=== PATIENT | female | born 1955 | race Caucasian/White ===

== ENCOUNTER 2017-02-14 14:31 | Emergency (ER) | payer MEDICAID ==
[2017-02-14] MEDS ORDERED: Oxycodone/Acetaminophen 5/325 mg Tab PO STA (14:58)
--- NOTE | 2017-02-14 15:01 | ED PDOC ---
Arrival/HPI - General Time Seen by Provider: 02/14/17 14:42 Historian: Patient, Family (Daughter, who translated for patient) - History of Present Illness Narrative History of Present Illness (Text): 02/14/17 14:55 A 62 year old female presents to the emergency department for evaluation after mechanical fall prior to arrival. History obtained through daughter who translated for patient. Daughter reports while walking patient tripped on uneven sidewalk falling forward and rolling to her left side. Patient complains of left knee pain, left hip pain and back pain. Patient denies any loss of consciousness, head trauma, headache, dizziness, neck pain, nausea, vomiting, abdominal pain, chest pain, shortness of breath or any other complaints. Time/Duration: Prior to Arrival Symptom Course: Unchanged Quality: Other Context: Tripped Past Medical History - Provider Review Nursing Documentation Reviewed: Yes - Cardiac Hx Cardiac Disorders: Yes Hx Hypertension: Yes Other/Comment: CARDIAC CATH, NO STENTING PER PT - Pulmonary Hx Respiratory Disorders: No - Neurological Hx Neurological Disorder: No - HEENT Hx HEENT Disorder: No - Renal Hx Renal Disorder: No - Endocrine/Metabolic Hx Endocrine Disorders: Yes Hx Diabetes Mellitus Type 2: Yes Hx Hyperthyroidism: Yes Other/Comment: THYROID NODULE - Hematological/Oncological Hx Blood Disorders: No - Integumentary Hx Dermatological Disorder: No - Musculoskeletal/Rheumatological Hx Musculoskeletal Disorders: No - Gastrointestinal Hx Gastrointestinal Disorders: Yes Hx Gastritis: Yes - Genitourinary/Gynecological Hx Genitourinary Disorders: No - Psychiatric Hx Psychophysiologic Disorder: No Hx Substance Use: No - Surgical History Hx Cardiac Catheterization: Yes - Anesthesia Hx Anesthesia: Yes Hx Anesthesia Reactions: No Hx Malignant Hyperthermia: No Family/Social History - Physician Review Nursing Documentation Reviewed: Yes Family/Social History: No Known Family HX Smoking Status: Never Smoked Hx Alcohol Use: No Hx Substance Use: No Allergies/Home Meds Allergies/Adverse Reactions: Allergies No Known Allergies Allergy (Unverified 03/18/14 09:38) Home Medications: Home Meds Medication Instructions Recorded Confirmed Bisoprolol Fumarate/Hctz 2.5 - 6.25 mg PO DAILY 03/22/14 02/14/17 [Bisoprolol/Hctz 2.5 mg-6.25 mg] Meloxicam [Mobic] 15 mg PO DAILY 03/22/14 02/14/17 Gabapentin [Neurontin] 300 mg PO DAILY 07/08/15 02/14/17 Omeprazole [Prilosec] 20 mg PO DAILY 07/08/15 02/14/17 Pravastatin Sodium [Pravachol] 40 mg PO DAILY 07/08/15 02/14/17 methIMAzole [Tapazole] 5 mg PO DAILY 07/08/15 02/14/17 Alendronate [Fosamax] 1 tab PO QWK 02/15/16 02/14/17 Ergocalciferol (Vitamin D2) 1 tab PO DAILY 02/15/16 02/14/17 [Vitamin D2] Furosemide [Lasix] 1 tab PO DAILY 02/15/16 02/14/17 Hydrocortisone 2.5% (Rectal) 1 apful TOP DAILY 02/15/16 02/14/17 [Anusol-HC] Multivitamin [Multivitamins] 1 tab PO DAILY 02/15/16 02/14/17 Nitroglycerin [Nitrostat] 1 tab PO PRN PRN 02/15/16 02/14/17 Potassium Chloride [Klor-Con 1 tab PO DAILY 02/15/16 02/14/17 Sprinkle] SITagliptin [Januvia] 1 tab PO DAILY 02/15/16 02/14/17 Sucralfate [Carafate Tab] 1 tab PO DAILY 02/15/16 02/14/17 Review of Systems - Physician Review All systems were reviewed & negative as marked: Yes - Review of Systems Constitutional: absent: Fatigue Eyes: absent: Vision Changes, Photophobia ENT: absent: Hearing Changes Respiratory: absent: SOB, Cough, Sputum, Wheezing Cardiovascular: absent: Chest Pain, Palpitations Gastrointestinal: absent: Abdominal Pain, Diarrhea, Nausea, Vomiting Musculoskeletal: Back Pain, Other (Left knee pain, Left hip pain). absent: Neck Pain Neurological: absent: Headache, Dizziness, Focal Weakness, Gait Changes Physical Exam Vital Signs Reviewed: Yes Vital Signs Temp Pulse Resp BP Pulse Ox 02/14/17 16:46 68 17 120/75 98 02/14/17 14:45 98 F 65 18 118/60 97 Temperature: Afebrile Blood Pressure: Normal Pulse: Regular Respiratory Rate: Normal Appearance: Positive for: Well-Appearing, Non-Toxic, Comfortable Pain Distress: None Mental Status: Positive for: Alert and Oriented X 3 - Systems Exam Head: Present: Atraumatic, Normocephalic Pupils: Present: PERRL Extroacular Muscles: Present: EOMI Conjunctiva: Present: Normal Mouth: Present: Moist Mucous Membranes Neck: Present: Normal Range of Motion. No: MIDLINE TENDERNESS, Paraspinal Tenderness Respiratory/Chest: Present: Clear to Auscultation, Good Air Exchange. No: Respiratory Distress, Accessory Muscle Use Cardiovascular: Present: Regular Rate and Rhythm, Normal S1, S2. No: Murmurs Abdomen: Present: Normal Bowel Sounds. No: Tenderness, Distention, Peritoneal Signs Back: Present: Midline Tenderness (lumbar tenderness). No: Paraspinal Tenderness, Pain with Leg Raise Upper Extremity: Present: Normal Inspection. No: Cyanosis, Edema Lower Extremity: Present: NORMAL PULSES, Normal ROM, Tenderness (Scant bony left hip tenderness, abrasion to L knee), Neurovascularly Intact. No: Edema, CALF TENDERNESS, Erythema, Deformity, Other (no joint laxity) Neurological: Present: GCS=15, CN II-XII Intact, Speech Normal Skin: Present: Warm, Dry, Normal Color, Abrasion (to left knee). No: Rashes Psychiatric: Present: Alert, Oriented x 3, Normal Insight, Normal Concentration Medical Decision Making ED Course and Treatment: 02/14/17 14:55 Impression: A 62 year old female with back, left hip and left knee pain after mechanical fall prior to arrival. Plan: -- LS spine xray -- Bilateral hip w/pelvis xray -- Left knee xray -- Percocet -- tetanus -- Reassess and disposition Progress Notes: Report Date : 02/14/2017 16:39:32 PROCEDURE: Radiographs of the Lumbar Spine. Dictator : Alexander Chambers MD IMPRESSION: [id number] multilevel lumbar spondylosis without fracture or spondylolisthesis identified. Diffuse osteopenia suggests osteoporosis. Follow -up MRI or CT cava performed for further characterization. Report Date : 02/14/2017 16:53:40 PROCEDURE: Left Knee Radiographs. Dictator : Carlos Salazar MD IMPRESSION: Mild medial osteoarthritis. Otherwise unremarkable. Report Date : 02/14/2017 16:54:56 PROCEDURE: Radiographs of the pelvis and bilateral hips Dictator : Carlos Salazar MD IMPRESSION: Unremarkable radiographs of the hips and pelvis. 02/14/17 17:01 Xrays are negative. Patient is ambulating around the ED without issue. Instructed to follow-up with PMD - RAD Interpretation Radiology Orders: 02/14/17 14:57 HIP MIN 2V W/ PELVIS BC [RAD] Stat KNEE WITH PATELLA LEFT 3 VIEW [RAD] Stat LS SPINE WITH OBL > 18 YRS OLD [RAD] Stat - Medication Orders Current Medication Orders: Discontinued Medications Oxycodone/Acetaminophen (Percocet 5/325 Mg Tab) 1 tab PO STAT STA Stop: 02/14/17 14:59 Last Admin: 02/14/17 15:41 Dose: 1 tab MAR Pain Assessment Document 02/14/17 15:41 SF (Rec: 02/14/17 15:42 SF [email or web address] Pain Reassessment Is this a pain reassessment? Yes Sleep Is patient sleeping during reassessment? No Presence of Pain Presence of Pain Yes Tetanus/Reduced Diphtheria/Acell Pertussis (Boostrix Vaccine Inj) 0.5 ml IM .ONCE ONE Stop: 02/14/17 17:02 Last Admin: 02/14/17 17:12 Dose: 0.5 ml MAR Immunization Data Document 02/14/17 17:12 SF (Rec: 02/14/17 17:13 SF [email or web address] Immunization Data Vaccine Lot Number [id number] Site Given Left Deltoid - Scribe Statement The provider has reviewed the documentation as recorded by the Scribbipin Jorgensen Provider Scribe Attestation: All medical record entries made by the Scribe were at my direction and personally dictated by me. I have reviewed the chart and agree that the record accurately reflects my personal performance of the history, physical exam, medical decision making, and the department course for this patient. I have also personally directed, reviewed, and agree with the discharge instructions and disposition. Disposition/Present on Arrival - Present on Arrival Any Indicators Present on Arrival: No History of DVT/PE: No History of Uncontrolled Diabetes: No Urinary Catheter: No History Surgical Site Infection Following: None - Disposition Have Diagnosis and Disposition been Completed?: Yes Diagnosis: Fall Disposition: HOME/ ROUTINE Disposition Time: 17:14 Patient Plan: Discharge Patient Problems: Current Active Problems Problem Status Onset Fall Acute Condition: GOOD Discharge Instructions (ExitCare): Fall Prevention for Older Adults (ED) Additional Instructions: Return to ED if condition worsens. Follow-up with PMD within 2 days. Motrin for pain. Referrals: PCP,NO [Primary Care Provider] - Follow up with primary Forms: [employer] ([place]anaian)
[2017-02-14 15:08] VITALS: TEMP 98; BMI 32.3
--- NOTE | 2017-02-14 16:41 | RAD ---
PROCEDURE: Radiographs of the Lumbar Spine. HISTORY: back pain after fall COMPARISON: No prior. FINDINGS: BONES: Normal alignment. No listhesis. No fracture. Diffuse osteopenia suggests osteoporosis. Multilevel spondylosis appears [id number] in severity. DISC SPACES: Unremarkable. OTHER FINDINGS: None. IMPRESSION: [id number] multilevel lumbar spondylosis without fracture or spondylolisthesis identified. Diffuse osteopenia suggests osteoporosis. Follow-up MRI or CT cava performed for further characterization.
--- NOTE | 2017-02-14 16:54 | RAD ---
PROCEDURE: Left Knee Radiographs. HISTORY: Pain. COMPARISON: None. FINDINGS: BONES: No acute fracture. No lytic or blastic osseous lesion. JOINTS: Mild medial osteoarthritis with joint space narrowing and marginal osteophyte formation. Lateral and patellofemoral compartments appear preserved. JOINT EFFUSION: None. OTHER FINDINGS: None. IMPRESSION: Mild medial osteoarthritis. Otherwise unremarkable.
--- NOTE | 2017-02-14 16:56 | RAD ---
PROCEDURE: Radiographs of the pelvis and bilateral hips HISTORY: L hip pain after fall COMPARISON: None. FINDINGS: BONES: Pelvis: Unremarkable. Right hip:Unremarkable. Left hip:Unremarkable. JOINTS: Right hip: Unremarkable. Left hip: Unremarkable. Sacroiliac Joints: Unremarkable. Pubic symphysis: Unremarkable. SOFT TISSUES: Normal. OTHER FINDINGS: None. IMPRESSION: Unremarkable radiographs of the hips and pelvis.
[2017-02-14] MEDS ORDERED: TDAP Vaccine 0.5 mL Syr IM ONE (17:01)
[2017-02-14 17:19] VITALS: BP 121/80; PULSE 70; RESP 18; O2SAT 99
== END 2017-02-14 17:19 | disposition home or self-care (01) ==
LOC: ED 14:31
DX: Z04.3 Encounter for examination and observation following other accident (principal); W01.0XXA Fall on same level from slipping, tripping and stumbling without subsequent striking against object, initial encounter; Y93.01 Activity, walking, marching and hiking; Y92.480 Sidewalk as the place of occurrence of the external cause

== ENCOUNTER 2017-09-11 20:02 | Emergency (ER) | payer MEDICAID ==
[2017-09-11 20:03] VITALS: BMI 32.3
[2017-09-11] MEDS ORDERED: Morphine 4 mg/ml ISec IVP PRN (20:32)
[2017-09-11] MEDS ORDERED: Sodium Chloride 0.9% 1,000 ML IV SCH (20:45)
[2017-09-11 20:50] VITALS: RESP 18; TEMP 98.2
[2017-09-11 21:52] LABS: BASO # 0.01 K/mm3 (0.0-2.0); BASO % 0.2 % (0.0-3.0); EOS # 0.1 (0.0-0.7); EOS % 1.7 % (1.5-5.0); GRAN # 3.83 (1.4-6.5); GRAN % 60.5 % (50.0-68.0); HEMOGLOBIN 14.3 g/dL (12.0-16.0); LYMPH % 31.3 % (22.0-35.0); MEAN CELL VOLUME 85.4 fl (80.0-105.0); MEAN CORPUSCULAR HEMOGLOBIN 28.9 pg (25.0-35.0); MEAN CORPUSCULAR HGB CONC 33.9 g/dl (31.0-37.0); MEAN PLATELET VOLUME 11.6 fl (7.0-11.0); MONO # 0.4 (0.1-0.6); MONO % 6.3 % (1.0-6.0); RBC 4.94 10^6/uL (3.5-6.1); RED CELL DISTRIBUTION WIDTH 13.5 % (11.5-14.5); WHITE BLOOD COUNT 6.3 10^3/ul (4.5-11.0)
[2017-09-11 21:53] LABS: ALB/GLOB RATIO 1.4 (1.1-1.8); ALBUMIN 4.6 g/dL (3.0-4.8); ALT/SGPT 33 U/L (7-56); AST/SGOT 27 U/L (14-36); BLOOD UREA NITROGEN 17 mg/dL (7-21); GFR AFRICAN-AMERICAN > 60; GFR NON-AFRICAN AMERICAN > 60
[2017-09-11 21:57] LABS: INR 1.02 (0.93-1.08); PARTIAL THROMBOPLASTIN TIME 24.7 Seconds (25.1-36.5); PROTHROMBIN TIME 11.6 SECONDS (9.4-12.5)
[2017-09-11 22:04] LABS: TROPONIN I 0.02 ng/mL
--- NOTE | 2017-09-11 22:13 | ED PDOC ---
Arrival/HPI - General Chief Complaint: Trauma Time Seen by Provider: 09/11/17 20:19 Historian: Patient, Family - History of Present Illness Narrative History of Present Illness (Text): 09/11/17 20:30 Azul Echeverria is a 62 year old female, whose past medical history includes hypertension, CAD, and diabetes, who presents to the Emergency department status post possible syncopal episode tonight. Patient states she is unsure if she lost consciousness earlier tonight but notes she fell and injured her right side. [id number] now complaining of right hip pain and right ankle pain. Patient denies any fever, chills, chest pain, shortness of breath, nausea, vomiting, diarrhea, urinary symptoms, neck pain, headache, or any other complaints. Symptom Onset: Gradual Symptom Course: Unchanged Activities at Onset: Light Context: Home Past Medical History - Provider Review Nursing Documentation Reviewed: Yes - Infectious Disease Hx of Infectious Diseases: None - Cardiac Hx Cardiac Disorders: Yes Hx Hypertension: Yes Other/Comment: CARDIAC CATH, NO STENTING PER PT - Pulmonary Hx Respiratory Disorders: No - Neurological Hx Neurological Disorder: No - HEENT Hx HEENT Disorder: No - Renal Hx Renal Disorder: No - Endocrine/Metabolic Hx Endocrine Disorders: Yes Hx Diabetes Mellitus Type 2: Yes Hx Hyperthyroidism: Yes Other/Comment: THYROID NODULE - Hematological/Oncological Hx Blood Disorders: No - Integumentary Hx Dermatological Disorder: No - Musculoskeletal/Rheumatological Hx Musculoskeletal Disorders: No - Gastrointestinal Hx Gastrointestinal Disorders: Yes Hx Gastritis: Yes - Genitourinary/Gynecological Hx Genitourinary Disorders: No - Psychiatric Hx Psychophysiologic Disorder: No Hx Substance Use: No - Surgical History Hx Cardiac Catheterization: Yes - Anesthesia Hx Anesthesia: Yes Hx Anesthesia Reactions: No Hx Malignant Hyperthermia: No Family/Social History - Physician Review Nursing Documentation Reviewed: Yes Family/Social History: Unknown Family HX Smoking Status: Never Smoked Hx Alcohol Use: No Hx Substance Use: No Allergies/Home Meds Allergies/Adverse Reactions: Allergies No Known Allergies Allergy (Unverified 03/18/14 09:38) Home Medications: Home Meds Medication Instructions Recorded Confirmed Bisoprolol Fumarate/Hctz 2.5 - 6.25 mg PO DAILY 03/22/1402/14/17 [Bisoprolol/Hctz 2.5 mg-6.25 mg] Meloxicam [Mobic] 15 mg PO DAILY 03/22/14 02/14/17 Gabapentin [Neurontin] 300 mg PO DAILY 07/08/15 02/14/17 Omeprazole [Prilosec] 20 mg PO DAILY 07/08/15 02/14/17 Pravastatin Sodium [Pravachol] 40 mg PO DAILY 07/08/15 02/14/17 methIMAzole [Tapazole] 5 mg PO DAILY 07/08/15 02/14/17 Alendronate [Fosamax] 1 tab PO QWK 02/15/16 02/14/17 Ergocalciferol (Vitamin D2) 1 tab PO DAILY 02/15/16 02/14/17 [Vitamin D2] Furosemide [Lasix] 1 tab PO DAILY 02/15/16 02/14/17 Hydrocortisone 2.5% (Rectal) 1 apful TOP DAILY 02/15/16 02/14/17 [Anusol-HC] Multivitamin [Multivitamins] 1 tab PO DAILY 02/15/16 02/14/17 Nitroglycerin [Nitrostat] 1 tab PO PRN PRN 02/15/16 02/14/17 Potassium Chloride [Klor-Con 1 tab PO DAILY 02/15/16 02/14/17 Sprinkle] SITagliptin [Januvia] 1 tab PO DAILY 02/15/16 02/14/17 Sucralfate [Carafate Tab] 1 tab PO DAILY 02/15/16 02/14/17 Review of Systems - Physician Review All systems were reviewed & negative as marked: Yes - Review of Systems Constitutional: Normal. absent: Fevers Eyes: Normal ENT: Normal Respiratory: Normal. absent: SOB, Cough Cardiovascular: Syncope Gastrointestinal: Normal Genitourinary Female: Normal Musculoskeletal: Arthralgias (+right ankle pain, +right hip pain) Skin: Normal Neurological: Dizziness. absent: Headache Endocrine: Normal Hemo/Lymphatic: Normal Psychiatric: Normal Physical Exam Vital Signs Reviewed: Yes Vital Signs Temp Pulse Resp BP Pulse Ox 09/12/17 00:30 98.2 F 75 18 144/89 100 09/11/17 22:53 74 18 146/63 95 09/11/17 20:49 98.2 F 78 18 163/90 H 98 Temperature: Afebrile Blood Pressure: Hypertensive Pulse: Regular Respiratory Rate: Normal Appearance: Positive for: Well-Appearing, Non-Toxic, Comfortable Pain Distress: None Mental Status: Positive for: Alert and Oriented X 3 - Systems Exam Head: Present: Atraumatic, Normocephalic Pupils: Present: PERRL Extroacular Muscles: Present: EOMI Conjunctiva: Present: Normal Mouth: Present: Moist Mucous Membranes Neck: Present: Normal Range of Motion Respiratory/Chest: Present: Clear to Auscultation, Good Air Exchange. No: Respiratory Distress, Accessory Muscle Use Cardiovascular: Present: Regular Rate and Rhythm, Normal S1, S2. No: Murmurs Abdomen: No: Tenderness, Distention, Peritoneal Signs Back: Present: Normal Inspection Upper Extremity: Present: Normal Inspection. No: Cyanosis, Edema Lower Extremity: Present: NORMAL PULSES, Tenderness (Tenderness over right ankle ), Neurovascularly Intact, Capillary Refill < 2 s. No: Edema, Swelling, Erythema, Deformity, Temperature Abnormalties Neurological: Present: GCS=15, CN II-XII Intact, Speech Normal, Motor Func Grossly Intact, Normal Sensory Function, Normal Cerebellar Funct Skin: Present: Warm, Dry, Normal Color. No: Rashes Psychiatric: Present: Alert, Oriented x 3, Normal Insight, Normal Concentration Medical Decision Making ED Course and Treatment: 09/11/17 20:30 Impression: 62 year old female presents s/p possible syncopal episode with right ankle pain and right hip pain. Differential Diagnosis included but are not limited to: Plan: -- CT Head w/o contrast -- EKG -- Chest X-ray -- XR RIGht Hip -- XR RIght Tibia/Fibula -- XR Right Ankle -- Labs, troponin -- UA -- IV fluids -- Morphine -- Reassess and disposition Prior Visits: Notes and results from previous visits were reviewed. Progress Notes: reviewed EKG, sinus rhythm at [address] bpm[address] Non-specific ST/T wave changes. 09/12/17 00:06 EXAM: CT Head Without Intravenous Contrast FINDINGS: Brain: There is diffuse cerebral atrophy present, consistent with this patient' s age. No hemorrhage. No significant white matter disease. Ventricles: Unremarkable. No ventriculomegaly. Bones/joints: Unremarkable. No acute fracture. Soft tissues: Unremarkable. Sinuses: Unremarkable as visualized. No acute sinusitis. Mastoid air cells: Unremarkable as visualized. No mastoid effusion. IMPRESSION: No acute intracranial findings. Dictated and Authenticated by: Rachana Preston MD 09/11/2017 11:12 PM Eastern Time ([place] & [place]) - Lab Interpretations Lab Results: 09/11/17 21:27 09/11/17 21:27 Lab Results 09/11/17 21:27: Sodium 144, Potassium 3.5 L, Chloride 104, Carbon Dioxide 26, Anion Gap 17, BUN 17, Creatinine 0.7, Est GFR ( Amer) > 60, Est GFR (Non- Af Amer) > 60, Random Glucose 152 H, Calcium 10.0, Total Bilirubin 0.6, AST 27, ALT 33, Alkaline Phosphatase 64, Troponin I 0.02 D, Total Protein 7.8, Albumin 4.6, Globulin 3.2, Albumin/Globulin Ratio 1.4 09/11/17 21:27: PT 11.6, INR 1.02, APTT 24.7 L 09/11/17 21:27: WBC 6.3 D, RBC 4.94, Hgb 14.3, Hct 42.2, MCV 85.4, MCH 28.9, MCHC 33.9, RDW 13.5, Plt Count 181, MPV 11.6 H, Gran % 60.5, Lymph % (Auto) 31.3 , [place] % (Auto) 6.3 H, Eos % (Auto) 1.7, Baso % (Auto) 0.2, Gran # 3.83, Lymph # (Auto) 2.0, [place] # (Auto) 0.4, Eos # (Auto) 0.1, Baso # (Auto) 0.01 - RAD Interpretation Radiology Orders: 09/11/17 20:56 ANKLE RIGHT 3 VIEWS ROUTINE [RAD] Stat HIP MIN 2V W/ PELVIS RT [RAD] Stat 09/11/17 20:57 CHEST ONE VIEW [RAD] Stat TIBIA FIBULA RIGHT [RAD] Stat 09/11/17 21:51 HEAD W/O CONTRAST [CT] Stat - EKG Interpretation Interpreted by ED Physician: Yes Type: 12 lead EKG - Medication Orders Current Medication Orders: Discontinued Medications Sodium Chloride (Sodium Chloride 0.9%) 1,000 mls @ 80 mls/hr IV .[id number] SALLY Last Admin: 09/11/17 21:35 Dose: 80 mls/hr eMAR Start Stop Document 09/11/17 21:35 AD (Rec: 09/11/17 21:35 AD [id number] Intravenous Solution Start Date 09/11/17 Start Time 21:35 Ketorolac Tromethamine (Toradol) 10 mg IVP ONCE ONE Stop: 09/11/17 22:24 Last Admin: 09/11/17 22:45 Dose: 10 mg MAR Pain Assessment Document 09/11/17 22:45 AD (Rec: 09/11/17 22:45 AD [email or web address] Pain Reassessment Is this a pain reassessment? No Presence of Pain Presence of Pain Yes Pain Scale Used Pain Scale Used Numeric Description Intensity of Pain at present 7 IVP Administration Document 09/11/17 22:45 AD (Rec: 09/11/17 22:45 AD [email or web address] Charges for Administration # of IVP Administrations 1 - Scribe Statement The provider has reviewed the documentation as recorded by the Scribe Rika Gilbert All medical record entries made by the Scribe were at my direction and personally dictated by me. I have reviewed the chart and agree that the record accurately reflects my personal performance of the history, physical exam, medical decision making, and the department course for this patient. I have also personally directed, reviewed, and agree with the discharge instructions and disposition. Disposition/Present on Arrival - Present on Arrival Any Indicators Present on Arrival: No History of DVT/PE: No History of Uncontrolled Diabetes: No Urinary Catheter: No History of Decub. Ulcer: No History Surgical Site Infection Following: None - Disposition Have Diagnosis and Disposition been Completed?: Yes Diagnosis: Right ankle sprain Disposition: HOME/ ROUTINE Disposition Time: 00:30 Condition: GOOD Discharge Instructions (ExitCare): Ankle Sprain Additional Instructions: use splint 4 to 5 days Referrals: Irene Ratliff MD [Primary Care Provider] - Follow up with primary Forms: [employer] ([place])
--- NOTE | 2017-09-11 23:12 | CT ---
EXAM: CT Head Without Intravenous Contrast CLINICAL HISTORY: 62 years old, female; Signs and symptoms; Syncope and collapse TECHNIQUE: Axial computed tomography images of the head/brain without intravenous contrast. All CT scans at this facility use one or more dose reduction techniques, viz.: automated exposure control; ma/kV adjustment per patient size (including targeted exams where dose is matched to indication; i.e. head); or iterative reconstruction technique. Coronal and sagittal reformatted images were created and reviewed. COMPARISON: No relevant prior studies available. FINDINGS: Brain: There is diffuse cerebral atrophy present, consistent with this patient's age. No hemorrhage. No significant white matter disease. Ventricles: Unremarkable. No ventriculomegaly. Bones/joints: Unremarkable. No acute fracture. Soft tissues: Unremarkable. Sinuses: Unremarkable as visualized. No acute sinusitis. Mastoid air cells: Unremarkable as visualized. No mastoid effusion. IMPRESSION: No acute intracranial findings.
[2017-09-12 02:10] VITALS: BP 144/89; PULSE 75; O2SAT 100
--- NOTE | 2017-09-12 08:19 | RAD ---
PROCEDURE: CHEST RADIOGRAPH, 1 VIEW HISTORY: pain COMPARISON: None available. FINDINGS: LUNGS: Clear. PLEURA: No pneumothorax or pleural fluid seen. CARDIOVASCULAR: Normal. OSSEOUS STRUCTURES: No significant abnormalities. VISUALIZED UPPER ABDOMEN: Normal. OTHER FINDINGS: None. IMPRESSION: No active disease.
--- NOTE | 2017-09-12 08:23 | RAD ---
PROCEDURE: Right Ankle Radiographs. HISTORY: fall COMPARISON: None FINDINGS: BONES: Normal. No fracture. JOINTS: Normal. No osteoarthritis. Ankle mortise maintained. Talar dome intact SOFT TISSUES: Normal. OTHER FINDINGS: None. IMPRESSION: Normal right ankle radiographs.
--- NOTE | 2017-09-12 08:24 | RAD ---
PROCEDURE: Right Hip and pelvis Radiographs. HISTORY: fall COMPARISON: None. FINDINGS: BONES: Normal. No fracture. JOINTS: Normal. SOFT TISSUES: Normal. OTHER FINDINGS: None. IMPRESSION: Negative study
--- NOTE | 2017-09-12 08:24 | RAD ---
PROCEDURE: Radiographs of the right tibia and fibula. HISTORY: fall COMPARISON: None available. TECHNIQUE: Frontal and lateral views obtained. FINDINGS: BONES: No fracture or destructive lesion. JOINT SPACES: Unremarkable. OTHER FINDINGS: None. IMPRESSION: Unremarkable radiographs of the right tibia and fibula.
--- NOTE | 2017-09-12 13:14 | CARD ---
APPROVED REPORT EKG Measurement Heart [id number] <Conclusion> Sinus rhythm with short IN Nonspecific ST and T wave abnormality
== END 2017-09-12 00:30 | disposition home or self-care (01) ==
LOC: ED 20:02
DX: S93.401A Sprain of unspecified ligament of right ankle, initial encounter (principal); W19.XXXA Unspecified fall, initial encounter; Y92.9 Unspecified place or not applicable; I10 Essential (primary) hypertension; E11.9 Type 2 diabetes mellitus without complications
CPT/HCPCS: 70450; 71045; 73502; 73590; 73610; 80053; 84484; 85025; 85610; 85730; 93005; 96374; 99285; J1885; J7040

== ENCOUNTER 2018-10-12 22:18 | Emergency (ER) | payer MEDICAID ==
[2018-10-12 22:18] VITALS: BMI 34.3
[2018-10-12 22:39] VITALS: TEMP 97.7
--- NOTE | 2018-10-12 22:40 | ED PDOC ---
Arrival/HPI - General Chief Complaint: Cough, Cold, Congestion Time Seen by Provider: 10/12/18 22:22 Historian: Patient - History of Present Illness Narrative History of Present Illness (Text): 10/12/18 22:40 Azul Echeverria is a 63 year old female, whose past medical history includes hypertension, CAD, and diabetes, who presents to the Emergency department complaining of cough. Patient states she was recently sick with a cough 2 weeks ago, which resolved, but returned again today. Relative notes today patient has been coughing up blood-tinged sputum. Patient also reports chest/rib discomfort after coughing. Patient denies any fever, chills, shortness of breath, nausea, vomiting, back pain, neck pain, headache, dizziness, or any other complaints. PMD: Dr. Aggie Ratliff Symptom Onset: Gradual Symptom Course: Unchanged Activities at Onset: Light Context: Home Past Medical History - Provider Review Nursing Documentation Reviewed: Yes Primary Care Provider: Irene Ratliff I - Infectious Disease Hx of Infectious Diseases: None - Cardiac Hx Cardiac Disorders: Yes Hx Hypertension: Yes Other/Comment: CARDIAC CATH, NO STENTING PER PT - Pulmonary Hx Respiratory Disorders: No - Neurological Hx Neurological Disorder: No - HEENT Hx HEENT Disorder: No - Renal Hx Renal Disorder: No - Endocrine/Metabolic Hx Endocrine Disorders: Yes Hx Diabetes Mellitus Type 2: Yes Hx Hyperthyroidism: Yes Other/Comment: THYROID NODULE - Hematological/Oncological Hx Blood Disorders: No - Integumentary Hx Dermatological Disorder: No - Musculoskeletal/Rheumatological Hx Musculoskeletal Disorders: No - Gastrointestinal Hx Gastrointestinal Disorders: Yes Hx Gastritis: Yes - Genitourinary/Gynecological Hx Genitourinary Disorders: No - Psychiatric Hx Psychophysiologic Disorder: No Hx Substance Use: No - Surgical History Hx Cardiac Catheterization: Yes - Anesthesia Hx Anesthesia: Yes Hx Anesthesia Reactions: No Hx Malignant Hyperthermia: No Family/Social History - Physician Review Nursing Documentation Reviewed: Yes Family/Social History: Unknown Family HX Smoking Status: Never Smoked Hx Alcohol Use: No Hx Substance Use: No Allergies/Home Meds Allergies/Adverse Reactions: Allergies No Known Allergies Allergy (Unverified 03/18/14 09:38) Home Medications: Home Meds Medication Instructions Recorded Confirmed Bisoprolol Fumarate/Hctz 2.5 - 6.25 mg PO DAILY 03/22/14 02/14/17 [Bisoprolol/Hctz 2.5 mg-6.25 mg] Meloxicam [Mobic] 15 mg PO DAILY 03/22/14 02/14/17 Gabapentin [Neurontin] 300 mg PO DAILY 07/08/15 02/14/17 Omeprazole [Prilosec] 20 mg PO DAILY 07/08/15 02/14/17 Pravastatin Sodium [Pravachol] 40 mg PO DAILY 07/08/15 02/14/17 methIMAzole [Tapazole] 5 mg PO DAILY 07/08/15 02/14/17 Alendronate [Fosamax] 1 tab PO QWK 02/15/16 02/14/17 Ergocalciferol (Vitamin D2) 1 tab PO DAILY 02/15/16 02/14/17 [Vitamin D2] Furosemide [Lasix] 1 tab PO DAILY 02/15/16 02/14/17 Hydrocortisone 2.5% (Rectal) 1 apful TOP DAILY 02/15/16 02/14/17 [Anusol-HC] Multivitamin [Multivitamins] 1 tab PO DAILY 02/15/16 02/14/17 Nitroglycerin [Nitrostat] 1 tab PO PRN PRN 02/15/16 02/14/17 Potassium Chloride [Klor-Con 1 tab PO DAILY 02/15/16 02/14/17 Sprinkle] SITagliptin [Januvia] 1 tab PO DAILY 02/15/16 02/14/17 Sucralfate [Carafate Tab] 1 tab PO DAILY 02/15/16 02/14/17 Review of Systems - Physician Review All systems were reviewed & negative as marked: Yes - Review of Systems Constitutional: Normal. absent: Fevers Eyes: Normal ENT: Normal Respiratory: Normal, Cough. absent: SOB Cardiovascular: Chest Pain Gastrointestinal: Normal. absent: Diarrhea, Vomiting Genitourinary Female: Normal. absent: Dysuria, Frequency, Hematuria, Urine Output Changes Musculoskeletal: Normal. absent: Back Pain, Neck Pain Skin: Normal. absent: Rash Neurological: Normal. absent: Headache, Dizziness Endocrine: Normal Hemo/Lymphatic: Normal Psychiatric: Normal Physical Exam Vital Signs Reviewed: Yes Vital Signs Temp Pulse Resp BP Pulse Ox 10/12/18 22:39 97.7 F 65 18 145/72 95 Temperature: Afebrile Blood Pressure: Normal Pulse: Regular Respiratory Rate: Normal Appearance: Positive for: Well-Appearing, Non-Toxic, Comfortable Pain Distress: None Mental Status: Positive for: Alert and Oriented X 3 - Systems Exam Head: Present: Atraumatic, Normocephalic Pupils: Present: PERRL Extroacular Muscles: Present: EOMI Conjunctiva: Present: Normal Mouth: Present: Moist Mucous Membranes Neck: Present: Normal Range of Motion Respiratory/Chest: Present: Clear to Auscultation, Good Air Exchange. No: Respiratory Distress, Accessory Muscle Use Cardiovascular: Present: Regular Rate and Rhythm, Normal S1, S2. No: Murmurs Abdomen: No: Tenderness, Distention, Peritoneal Signs Back: Present: Normal Inspection Upper Extremity: Present: Normal Inspection. No: Cyanosis, Edema Lower Extremity: Present: Normal Inspection. No: Edema Neurological: Present: GCS=15, CN II-XII Intact, Speech Normal Skin: Present: Warm, Dry, Normal Color. No: Rashes Psychiatric: Present: Alert, Oriented x 3, Normal Insight, Normal Concentration Medical Decision Making ED Course and Treatment: 10/12/18 22:40 Impression: 63 year old female complaining of coughing up blood. Plan: -- EKG -- Chest X-ray -- Labs, troponin -- Reassess and disposition Prior Visits: Notes and results from previous visits were reviewed. Progress Notes: Reviewed EKG, sinus rhythm at [address] bpm[address] Non-specific ST/T wave changes. 10/13/18 00:30 Chest X-ray reviewed, shows no acute processes. - RAD Interpretation Certified Physician'S Assistant: ED Physician - EKG Interpretation Interpreted by ED Physician: Yes Type: 12 lead EKG - Scribe Statement The provider has reviewed the documentation as recorded by the Rosalinda Gilbert Provider Scribe Attestation: All medical record entries made by the Scribbipin were at my direction and personally dictated by me. I have reviewed the chart and agree that the record accurately reflects my personal performance of the history, physical exam, [facility] decision making, and the department course for this patient. I have also personally directed, reviewed, and agree with the discharge instructions and disposition. Disposition/Present on Arrival - Present on Arrival Any Indicators Present on Arrival: No History of DVT/PE: No History of Uncontrolled Diabetes: No Urinary Catheter: No History of Decub. Ulcer: No History Surgical Site Infection Following: None - Disposition Have Diagnosis and Disposition been Completed?: Yes Diagnosis: Bronchitis Disposition: HOME/ ROUTINE Disposition Time: 00:55 Condition: GOOD Discharge Instructions (ExitCare): Acute Bronchitis Prescriptions: levoFLOXacin [Levaquin] 500 mg PO DAILY #10 tab Forms: V2contact (Italian)
[2018-10-12 23:36] LABS: ALB/GLOB RATIO 1.2 (1.1-1.8); ALBUMIN 4.1 g/dL (3.0-4.8); ALT/SGPT 25 U/L (7-56); AST/SGOT 25 U/L (14-36); BLOOD UREA NITROGEN 8 mg/dL (7-21); CALCIUM 9.3 mg/dL (8.4-10.5); GFR NON-AFRICAN AMERICAN > 60
[2018-10-12 23:37] LABS: BASO # 0.03 K/mm3 (0.0-2.0); BASO % 0.4 % (0.0-3.0); EOS # 0.2 (0.0-0.7); EOS % 2.8 % (1.5-5.0); HEMOGLOBIN 13.8 g/dL (12.0-16.0); LYMPH # 2.9 (1.2-3.4); LYMPH % 42.9 % (22.0-35.0); MEAN CORPUSCULAR HEMOGLOBIN 28.3 pg (25.0-35.0); MEAN CORPUSCULAR HGB CONC 33.3 g/dl (31.0-37.0); MEAN PLATELET VOLUME 10.4 fl (7.0-11.0); MONO # 0.8 (0.1-0.6); MONO % 11.3 % (1.0-6.0); RBC 4.88 10^6/uL (3.5-6.1); WHITE BLOOD COUNT 6.8 10^3/uL (4.5-11.0)
[2018-10-12 23:47] LABS: TROPONIN I < 0.01 ng/mL
[2018-10-13 00:31] VITALS: BP 149/62; PULSE 61; RESP 15; O2SAT 96
[2018-10-13] MEDS ORDERED: levoFLOXacin 500 MG TAB PO STA (00:43)
--- NOTE | 2018-10-13 10:48 | RAD ---
Date of service: 10/12/2018 HISTORY: cough COMPARISON: Chest radiograph dated 09/11/2017. TECHNIQUE: Chest PA and lateral views FINDINGS: LUNGS: No active pulmonary disease. PLEURA: No significant pleural effusion identified. No pneumothorax apparent. CARDIOVASCULAR: Aortic atherosclerotic calcifications. Cardiomediastinal silhouette stably enlarged. OSSEOUS STRUCTURES: Unchanged. VISUALIZED UPPER ABDOMEN: Unremarkable OTHER FINDINGS: None. IMPRESSION: No active disease.
--- NOTE | 2018-10-13 11:25 | CARD ---
APPROVED REPORT Date of service: 10/12/2018 EKG Measurement Heart [id number] <Conclusion> Sinus rhythm with short [place] Nonspecific ST and T wave abnormality Abnormal ECG
== END 2018-10-13 00:55 | disposition home or self-care (01) ==
LOC: ED 22:18
DX: J40 Bronchitis, not specified as acute or chronic (principal); I25.10 Atherosclerotic heart disease of native coronary artery without angina pectoris; I10 Essential (primary) hypertension; E11.9 Type 2 diabetes mellitus without complications